=== PATIENT | female | born 1965 | race Caucasian/White ===

== ENCOUNTER 2016-05-10 07:51 | Emergency (ER) | payer BC, OTHER ==
[~2016-05-10] VITALS: Ht 167.6 cm; Wt 172.4 kg
[~2016-05-10 07:51] MED LIST: AMOXICILLIN875 MG PO; BAYER CHEWABLE81 MG PO; COUMADIN 4 MG TA4 M1 PO; DIPHENHIST50 MG PO; LASIX 40 MG TAB40 M2 PO; PATADAY2.5 ML OP; PERCOCET 5-3251 EACH PO; POTASSIUM20 PO; [UNRECOGNIZED DRUG - OTHER] PO
[2016-05-10 08:30] LABS: ABSOLUTE NEUTROPHILS 5.3 thou/uL (1.4-8.2); BASOPHILS 0.9 % (0.0-2.0); EOSINOPHILS 2.5 % (0.0-3.0); HEMOGLOBIN 8.1 gm/dL (12.0-15.0); LYMPHOCYTES 19.9 % (24.0-44.0); MANUAL DIFF NO; MCH 20.4 pg (26.0-34.0); MCV 65.8 fL (80.0-100.0); MONOCYTES 7.2 % (1.0-8.0); PLATELET COUNT 276 thou/uL (150-400); POLYS 69.5 % (36.0-66.0); RBC 3.95 mil/uL (4.20-5.00); RDW 17.9 % (10.5-14.5); WBC 7.6 thou/uL (4.0-11.0)
[2016-05-10 08:40] LABS: CALCIUM 8.6 mg/dL (8.5-10.1); CREATININE 0.9 mg/dL (0.6-1.3); POTASSIUM 3.9 mmol/L (3.5-5.1)
[2016-05-10 08:43] LABS: APTT 34.9 Seconds (24.5-32.8); INR 2.2; PROTIME 22.7 Seconds (9.3-11.4)
[2016-05-10 09:30] LABS: ANISOCYTOSIS 1+; HYPOCHROMASIA 3+; MICROCYTES 3+
[2016-05-10 10:16] VITALS: BP 147/58
== END 2016-05-10 10:18 | disposition short-term general hospital (02) ==
LOC: ER 07:51
PROVIDERS: Emergency Medicine
DX: N93.8 Other specified abnormal uterine and vaginal bleeding (principal); D64.89 Other specified anemias; Z79.01 Long term (current) use of anticoagulants; Z90.49 Acquired absence of other specified parts of digestive tract

== ENCOUNTER 2019-07-02 21:12 | Inpatient (IN) | payer BC, OTHER ==
[~2019-07-02] VITALS: Ht 167.6 cm; Wt 183.3 kg
[2019-07-02 21:56] LABS: ABSOLUTE NEUTROPHILS 10.5 thou/uL (1.4-8.2); BASOPHILS 0.7 % (0.0-2.0); EOSINOPHILS 0.5 % (0.0-3.0); HEMATOCRIT 44.2 % (37.0-47.0); HEMOGLOBIN 14.1 gm/dL (12.0-15.0); LYMPHOCYTES 7.5 % (24.0-44.0); MCH 26.8 pg (26.0-34.0); MCHC 31.9 g/dL (28.0-37.0); MCV 83.8 fL (80.0-100.0); MONOCYTES 6.3 % (1.0-8.0); PLATELET COUNT 286 thou/uL (150-400); RBC 5.27 mil/uL (4.20-5.00); RDW 15.4 % (10.5-14.5); WBC 12.3 thou/uL (4.0-11.0)
[2019-07-02 22:10] LABS: ANION GAP 9 mmol/L (7-16); BUN 24 mg/dL (7-18); CHLORIDE 106 mmol/L (98-107); CO2 23 mmol/L (21-32); CREATININE 1.3 mg/dL (0.6-1.0); GLUCOSE 120 mg/dL (74-106); POTASSIUM 4.6 mmol/L (3.5-5.1); SODIUM 138 mmol/L (136-145)
[2019-07-02 22:15] LABS: TROPONIN-I <0.06 ng/mL (<0.06)
[2019-07-02] MEDS ORDERED: COUMADIN 5 MG TA5 M1 PO (22:26)
[2019-07-02] MEDS ORDERED: MUCINEX FAST-M180 M2 PO (22:27)
[2019-07-02] MEDS ORDERED: PREDNISONE 5 MG5 M1 PO (22:27)
[2019-07-02 22:31] LABS: APTT 35.1 Seconds (24.5-32.8); INR 2.4; PROTIME 24.8 Seconds (9.3-11.4)
[2019-07-03] VITALS (26 sets, daily range): BP systolic 88–174; BP diastolic 61–115
--- NOTE | 2019-07-03 06:38 | NUR ---
ASSESSMENT: PT WAS ADMITTED TO THE UNIT AT APPROXIMATELY 0200 FROM ED. ACCOMPANIED BY STAFF MEMBERS. CARDIZEM GTT AT 15MG/HR. A-FIB ON THE MONITOR. HR FLUCTUATING BETWEEN 89-130'S NOT PERSISTANT. VSS, AFEBRILE. C/O BACK PAIN, TYLENOL GIVEN WITH PARTIAL RELIEF. EXTERNAL FEMALE CATHETER INTACT. SOB WITH EXERTION. R/O PENDING FOR COVID. UA PENDING. CONSULT FOR DR. NEWTON CALLED. WILL CONTINUE TO MONITOR.
--- NOTE | 2019-07-03 08:04 | EKG ---
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 /EPI
--- NOTE | 2019-07-03 08:06 | EKG ---
[facility] [place] [place] [address] ELECTROCARDIOGRAM REPORT Name: RADHA MCKEON Room #: 241-P ADM IN M.R.#: [id number] Admission: 07/03/19 Attend Phys: Joan Root Discharge: Date of : 63 Report #: [id number] THIS REPORT FOR: cc: LATOYA - No family physician/PCP LATOYA - No family physician/PCP Chavo Hines MD 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
[2019-07-03 09:41] LABS: INR 2.5; PROTIME 25.7 Seconds (9.3-11.4)
--- NOTE | 2019-07-03 12:01 | NUR ---
ID RN GAVE OK FOR PT TO TRANSFER AND COME OUT OF ENAHNCED PRECAUTIONS.
--- NOTE | 2019-07-03 13:42 | NUR ---
REPORT CALLED TO 2N WILL TRANSPORT PT TO 209.
--- NOTE | 2019-07-03 16:18 | 2DMMODE ---
[facility] [place] [address] 2 D/M-MODE ECHOCARDIOGRAM Name: RADHA MCKEON Room #: 209-P ADM IN M.R.#: [id number] Admission: 07/03/19 Attend Phys: Vinny Myers MD Discharge: Date of : 63 Report #: [id number] THIS REPORT FOR: cc: FAM - No family physician/PCP FAM - No family physician/PCP Chavo Hines MD [facility] ~ APPROVED REPORT Study performed: 07/03/2019 15:23:33 EXAM: Comprehensive 2D, Doppler, and color-flow Echocardiogram Patient Location: In-Patient Room #: 209 Status: routine BSA: 2.68 HR: 129 bpm BP: 150/102 mmHg Rhythm: Atrial Fibrillation Other Information Study Quality: Fair Indications AFIB RVR. CHF? 2D Dimensions RVDd: 24.94 mm IVSd: 10.28 (7-11mm) LVDd: 49.29 mm PWd: 11.45 (7-11mm) LVDs: 42.33 (25-40mm) Volumes Left Atrial Volume (Systole) Single Plane 4CH: 93.69 mL Single Plane 2CH: 97.70 mL LA ESV Index: 36.00 mL/m2 Aortic Valve AoV Peak Gael.: 1.68 m/s AO Peak Gr.: 17.54 mmHg LVOT Max P.82 mmHg LVOT Max V: 0.97 m/s Mitral Valve MV Max Gael.: 3.72 m/s [facility] [address] [place] [address] 2 D/M-MODE ECHOCARDIOGRAM Name: RADHA MCKEON BLANCA Room #: 209-P ADM IN M.R.#: [id number] Admission: 07/03/19 Attend Phys: Vinny Myers MD Discharge: Date of : 63 Report #: [id number] Mean Gael.: 2.92 m/s IVRT: 69.20 ms Pulmonary Valve PV Peak Gael.: 1.07 m/s PV Peak Gr.: 4.85 mmHg Tricuspid Valve TR Peak Gael.: 3.36 m/s RAP Estimate: 15.00 mmHg TR Peak Gr.: 45.24 mmHg PA Pressure: 45.00 mmHg Left Ventricle AFIB RVR The left ventricle is normal size. There is normal LV segmental wall motion. There is normal left ventricular wall thickness. The left ventricular systolic function is normal. The left ventricular ejection fraction is within the normal range. LVEF is 60%. This study is not technically sufficient to allow evaluation of the LV diastolic function due to atrial fibrillation. Right Ventricle The right ventricle is normal size. The right ventricular systolic function is normal. Atria The left atrium size is normal. The right atrium size is normal. Aortic Valve Aortic valve is not well visualized, grossly normal in structure. No regurgitation seen. There is no evidence of aortic valvular stenosis. Mitral Valve Mitral valve is not well visualized, grossly normal. At least moderate, possibly moderately severe mitral regurgitation No evidence of mitral valve stenosis. Tricuspid Valve The tricuspid valve is normal in structure. Moderate tricuspid regurgitation. Estimated pulmonary artery pressure of 45 mmHg. Pulmonic Valve Pulmonic valve is not well visualized. Normal by Doppler data. Mild pulmonic regurgitation. [facility] [address] [place] [address] 2 D/M-MODE ECHOCARDIOGRAM Name: RADHA MCKEON BLANCA Room #: 209-P ADM IN .R.#: [id number] Admission: 07/03/19 Attend Phys: Vinny Myers MD Discharge: Date of : 63 Report #: [id number] Great Vessels The aortic root is normal in size. The ascending aorta is normal in size. IVC is dilated and collapses <50% with inspiration. Pericardium There is no pericardial effusion. <Conclusion> The left ventricular systolic function is normal. There is normal LV segmental wall motion. LVEF is 60%. Aortic valve is not well visualized, grossly normal in structure. No regurgitation or stenosis Mitral valve is not well visualized, grossly normal. At least moderate, possibly moderately severe mitral regurgitation Moderate tricuspid regurgitation. Estimated pulmonary artery pressure of 45 mmHg. There is no pericardial effusion. <ELECTRONICALLY SIGNED> By: Chavo Hines MD, [facility] 07/03/19 1616 1616 1616 Chavo Hines MD, FACC /INF
--- NOTE | 2019-07-03 17:50 | NUR ---
Assumed care approx 1420. Pt transferred to this unit from ICU. Pt alert and oriented X4. Assessment as charted. A-Fib on tele monitor. Pt tachycardic this shift. PRN Lopressor administered. Pt's HR not responding to Lopressor. Dr. Hines notified and advised to give Atenolol dose early. Mild dyspnea with exertion and currently on 2L NC. Pt has tolerated getting up to commode and educated on slow position changes. Will continue to monitor.
[2019-07-03 18:04] LABS: URINE BILIRUBIN NEGATIVE (Negative); URINE BLOOD NEGATIVE (Negative); URINE CLARITY CLEAR; URINE COLOR YELLOW; URINE GLUCOSE-RANDOM* NEGATIVE (Negative); URINE KETONES NEGATIVE (Negative); URINE LEUKOCYTES NEGATIVE (Negative); URINE NITRITE NEGATIVE (Negative); URINE PROTEIN (DIPSTICK) NEGATIVE (Negative); URINE UROBILINOGEN 0.2 E.U./dl (0.2-1.0)
[2019-07-04 00:04] VITALS: BP 114/75
[2019-07-04 04:23] LABS: HEMOGLOBIN 13.3 gm/dL (12.0-15.0); MCH 26.8 pg (26.0-34.0); MCHC 32.5 g/dL (28.0-37.0); MCV 82.6 fL (80.0-100.0); RBC 4.97 mil/uL (4.20-5.00); RDW 15.8 % (10.5-14.5); WBC 10.8 thou/uL (4.0-11.0)
[2019-07-04 04:27] VITALS: BP 110/71
[2019-07-04 04:31] LABS: CALCIUM 8.4 mg/dL (8.5-10.1); CREATININE 1.4 mg/dL (0.6-1.0); MAGNESIUM 2.3 mg/dL (1.8-2.4); POTASSIUM 4.3 mmol/L (3.5-5.1)
[2019-07-04 05:23] VITALS: BP 101/77
--- NOTE | 2019-07-04 07:46 | NUR ---
Pt rested through the night. vss. RVR at the beginning of shift Yesterday but pt was started on cardizem drip. overnight, pt was titrated and currently at a rate of 5ml/hr, HR 60 to 80. denies nausea , vomiting or chest pain. will continue to monitor
[2019-07-04 08:10] VITALS: BP 117/87
[2019-07-04] MEDS ORDERED: K-DUR 20 MEQ T20 MEQ PO (08:10)
[2019-07-04] MEDS ORDERED: DEMADEX20 MG PO (08:10)
[2019-07-04] MEDS ORDERED: ATENOLOL 50MG T50 MG PO (08:10)
[2019-07-04] MEDS ORDERED: CARTIA XT240 M1 PO (08:10)
--- NOTE | 2019-07-04 08:40 | EKG ---
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 : 1965 Requested By: Chavo Hines Order Number: [id number] MD: Chavo Hines Measurements Intervals [place] Rate: 98 P: HI: QRS: 60 QRSD: 83 T: 54 QT: 407 QTc: 520 Interpretive Statements Atrial fibrillation Occasional premature ventricular complexes Prolonged QT interval Compared to ECG 07/03/2019 07:29:23 Prolonged QT interval now present Electronically Signed On 07-04-2019 8:38:27 CDT by Chavo Hines [email or web address] <ELECTRONICALLY SIGNED> By: Chavo Hines MD, FACC 07/04/19 0838 0 Chavo Hines MD, [facility] /EPI
[2019-07-04 10:40] VITALS: BP 148/73
[2019-07-04] MEDS ORDERED: IPRAT-ALBUT 0.5-3 ML INH (11:31)
[2019-07-04] MEDS ORDERED: CEFUROXIME500 MG PO (11:31)
[2019-07-04] MEDS ORDERED: ZITHROMAX500 MG PO (11:31)
[2019-07-04] MEDS ORDERED: ACETAMINOPHEN325 M1 PO (11:31)
[2019-07-04 11:56] VITALS: BP 117/87
--- NOTE | 2019-07-04 11:57 | NUR ---
Chart reviewed and case discussed with the care team. Dc recommendations for HH RN and therapy evals in the home discussed with the pt. She is a&ox4 and indicates that she is at her baseline functionally. She is up ad josé miguel in her room and was seen by therapy this morning. She reports that her spouse and adult son live with her and are very helpful with homemaker chores and adl's if needed. She does not feel she will be homebound. She reports her sob has improved and she has been weaned off o2. Her spouse is picking her up today. She lives in a split level home with 6 steps up to her bedroom and bath and feels she can manage them as before. Her pcp is Dr. Kavon Gaviria in [place] and she is making a f/u appt with him this week. Her spouse does the laundry which is in the basement and she normally does their meal prep. She denies any need or concerns at this time. Nursing and the attending aware. No cm interventions indicated at this time. HH referral declined.
--- NOTE | 2019-07-04 12:25 | NUR ---
ASSUMMED PT CARE AT APPROXIMATELY 0700. PT A&O X4. ASSESSMENT CHARTED. FALL PRECAUTIONS IN PLACE. PT DENIES HAVING CHEST PAIN. PT DENIES HAVING SOB. PT DENIES HAVING ACUTE PAIN. PT AMBULATES STEADY/INDEPENDENT. PT DISCHARGING HOME C SELF CARE. PT RECEIVED DISCHARGE EDUCATION. PT STATED UNDERSTANDING AND DENIED HAVING FURTHER QUESTIONS. IV DC. TELE DC. PT RECEIVING HOSPITAL TRANSPORT OFF UNIT. PT DC OFF CARDIZEM DRIP. VITAL SIGNS STABLE. PT COMFORTABLE. PT DENIES HAVING FURTHER CONCERNS.
== END 2019-07-04 13:43 | disposition home or self-care (01) | DRG 291 ==
LOC: ER 21:12 → EROBS 07-03 00:09 → ICU 07-03 00:09 → 2N 07-03 14:39 → ENTRNSPT 07-04 13:08 → 2N 07-04 13:43
PROVIDERS: Emergency Medicine; Internal Medicine; Nurse Practitioner Family; ADMIT Internal Medicine
PROC: 5A09357 Assistance with Respiratory Ventilation, Less than 24 Consecutive Hours, Continuous Positive Airway Pressure (ICD-10-PCS; principal; 2019-07-03)
PROC: 5A09357 Assistance with Respiratory Ventilation, Less than 24 Consecutive Hours, Continuous Positive Airway Pressure (ICD-10-PCS; 2019-07-04)
DX: I50.31 Acute diastolic (congestive) heart failure (principal); J12.9 Viral pneumonia, unspecified; J96.01 Acute respiratory failure with hypoxia; N17.9 Acute kidney failure, unspecified; D68.59 Other primary thrombophilia; Z68.44 Body mass index [BMI] 60.0-69.9, adult; I48.91 Unspecified atrial fibrillation; J45.909 Unspecified asthma, uncomplicated; G47.33 Obstructive sleep apnea (adult) (pediatric); M32.9 Systemic lupus erythematosus, unspecified; D72.0 Genetic anomalies of leukocytes; E66.01 Morbid (severe) obesity due to excess calories; Z86.718 Personal history of other venous thrombosis and embolism; Z82.49 Family history of ischemic heart disease and other diseases of the circulatory system; Z79.01 Long term (current) use of anticoagulants; Z03.818 Encounter for observation for suspected exposure to other biological agents ruled out; Z79.899 Other long term (current) drug therapy
CPT/HCPCS: 10081

== ENCOUNTER → 2019-11-13 | Outpatient (CLI) | payer BC, OTHER ==
[~2019-11-13] MED LIST changes: +ACETAMINOPHEN325 M1 PO; +ATENOLOL 50MG T50 MG PO; +CARTIA XT240 M1 PO; +CEFUROXIME500 MG PO; +COUMADIN 5 MG TA5 M1 PO; +DEMADEX20 MG PO; +IPRAT-ALBUT 0.5-3 ML INH; +K-DUR 20 MEQ T20 MEQ PO; +MUCINEX FAST-M180 M2 PO; +PREDNISONE 5 MG5 M1 PO; +ZITHROMAX500 MG PO
== END ==
LOC: SJCVCIMAG 09:01
PROVIDERS: ATTEND Internal Medicine
DX: I08.1 Rheumatic disorders of both mitral and tricuspid valves (principal); I50.32 Chronic diastolic (congestive) heart failure; I48.21 Permanent atrial fibrillation

== ENCOUNTER → 2020-12-19 | Outpatient (CLI) | payer BC, OTHER | LOC: SJCVC 13:05 | PROVIDERS: ATTEND Internal Medicine | DX: R94.31 Abnormal electrocardiogram [ECG] [EKG] (principal); I48.21 Permanent atrial fibrillation; I11.0 Hypertensive heart disease with heart failure; I50.32 Chronic diastolic (congestive) heart failure; E78.5 Hyperlipidemia, unspecified; G47.33 Obstructive sleep apnea (adult) (pediatric); Z90.49 Acquired absence of other specified parts of digestive tract; Z90.710 Acquired absence of both cervix and uterus; Z98.890 Other specified postprocedural states; Z79.899 Other long term (current) drug therapy; Z86.2 Personal history of diseases of the blood and blood-forming organs and certain disorders involving the immune mechanism ==